=== PATIENT | male | born 1960 | race African-American/Black ===

== ENCOUNTER 2017-10-06 13:42 | Emergency (ER) | payer BC, SELFPAY ==
[2017-10-06] MEDS ORDERED: Ketorolac Tromethamine 60 MG/2 ML VIAL ONE (14:39)
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
== END 2017-10-06 14:49 | disposition home or self-care (01) ==
LOC: ERS 13:42
DX: S13.9XXA Sprain of joints and ligaments of unspecified parts of neck, initial encounter (principal); S33.5XXA Sprain of ligaments of lumbar spine, initial encounter; I10 Essential (primary) hypertension; Z87.891 Personal history of nicotine dependence; Z79.899 Other long term (current) drug therapy; V59.9XXA Occupant (driver) (passenger) of pick-up truck or van injured in unspecified traffic accident, initial encounter
CPT/HCPCS: 70450; 71045; 72125; 96372; J1885

== ENCOUNTER 2022-03-07 12:15 | Outpatient (CLI) | payer OTHER | END 2022-03-07 12:16 | disposition home or self-care (01) | LOC: BICRAD 12:15 | PROVIDERS: ATTEND Nurse Practitioner Family | DX: M54.50 Low back pain, unspecified (principal) | CPT/HCPCS: 72100 ==

== ENCOUNTER 2022-06-24 09:58 | Outpatient (CLI) | payer OTHER | END 2022-06-24 09:59 | disposition home or self-care (01) | LOC: BICRAD 09:58 | PROVIDERS: ATTEND Nurse Practitioner Family | DX: M10.9 Gout, unspecified (principal) ==

== ENCOUNTER 2022-08-24 15:05 | Outpatient (CLI) | payer OTHER | END 2022-08-24 15:06 | disposition home or self-care (01) | LOC: ULT 15:05 | PROVIDERS: ATTEND Internal Medicine Nephrology | DX: N17.9 Acute kidney failure, unspecified (principal); N18.9 Chronic kidney disease, unspecified | CPT/HCPCS: 76770 ==

== ENCOUNTER 2022-11-02 13:15 | Outpatient (CLI) | payer OTHER | END 2022-11-02 13:16 | disposition home or self-care (01) | LOC: ULT 13:15 | PROVIDERS: ATTEND Nurse Practitioner Family | DX: M79.604 Pain in right leg (principal) ==

== ENCOUNTER 2024-12-03 08:03 | Outpatient (CLI) | payer BC | END 2024-12-03 08:04 | disposition home or self-care (01) | LOC: ULT 08:03 | PROVIDERS: ATTEND Nurse Practitioner Family | DX: M79.661 Pain in right lower leg (principal) ==